=== PATIENT | female | born 1995 | race American Indian/Alaskan Native ===

== ENCOUNTER 2019-03-03 07:07 | Emergency (ER) | payer SELFPAY ==
[2019-03-03 07:24] VITALS: BP 134/60
--- NOTE | 2019-03-03 08:11 | Emergency Department Report ---
ED Abdominal Pain HPI - General Chief Complaint: Nausea/Vomiting/Diarrhea Stated Complaint: DIARRHEA,VOMITING Time Seen by Provider: 03/03/19 07:56 Source: patient Mode of arrival: Ambulatory Limitations: No Limitations - History of Present Illness Initial Comments: Malena is a 23 yo female with hx of obesity who presents with abdominal pain, nausea diarrhea for 2 months. Cramping sharp diffuse migrating pain intermittent. Sometimes, pain is localized to RUQ. She has had loose stools without constipation. No fever. No vomiting. +heartburn. Has gain 70 pounds since high school. 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 No PCP +daily marijuana use for several years In a same sex relationship. Does not have sex with men. No possibility of . MD Complaint: abdominal pain -: Gradual, month(s) (2) Location: diffuse, RUQ Radiation: back Migration to: RUQ, other (back) Severity: mild Severity scale (0 -10): 0 Quality: cramping Consistency: now resolved Improves With: nothing Worsens With: nothing Associated Symptoms: nausea, diarrhea, other (heartburn) - Related Data Previous Rx's Medication Instructions Recorded Last Taken Type Promethazine [Phenergan] 25 mg PO Q6HR PRN #10 tab 03/03/19 Unknown Rx Allergies Allergy/AdvReac Type Severity Reaction Status Date / Time shellfish derived Allergy Unknown Verified 03/03/19 07:18 ED Review of Systems ROS: Stated complaint: DIARRHEA,VOMITING Other details as noted in HPI Comment: All other systems reviewed and negative Constitutional: denies: fever, malaise Gastrointestinal: abdominal pain, nausea, diarrhea. denies: vomiting, constipation Genitourinary: denies: dysuria ED Past Medical Hx - Past Medical History Previous Medical History?: No - Surgical History Past Surgical History?: No - Social History Smoking Status: Current Every Day Smoker Substance Use Type: Alcohol, Marijuana - Medications Home Medications: Home Medications Medication Instructions Recorded Confirmed Last Taken Type Promethazine [Phenergan] 25 mg PO Q6HR PRN #10 tab 03/03/19 Unknown Rx ED Physical Exam - General Limitations: No Limitations General appearance: alert, in no apparent distress, other (appears well comfortable healthy articulate insightful talkative) - Head Head exam: Present: atraumatic, normocephalic - Eye Eye exam: Present: normal appearance - ENT ENT exam: Present: mucous membranes moist - Neck Neck exam: Present: normal inspection, full ROM - Respiratory Respiratory exam: Present: normal lung sounds bilaterally. Absent: respiratory distress, wheezes, rales, rhonchi - Cardiovascular Cardiovascular Exam: Present: regular rate, normal rhythm, normal heart sounds. Absent: systolic murmur, diastolic murmur, rubs, gallop - GI/Abdominal GI/Abdominal exam: Present: soft, normal bowel sounds. Absent: distended, tenderness, guarding, rebound - Extremities Exam Extremities exam: Present: normal inspection - Back Exam Back exam: Present: normal inspection - Neurological Exam Neurological exam: Present: alert, oriented X3 - Psychiatric Psychiatric exam: Present: normal affect, normal mood - Skin Skin exam: Present: warm, dry, intact, normal color. Absent: rash ED Course Vital Signs 03/03/19 03/03/19 03/03/19 07:20 07:30 07:44 Temperature 98.1 F 98.1 F Pulse Rate 90 90 Respiratory 18 18 18 Rate Blood Pressure 134/60 Blood Pressure 134/60 [Right] O2 Sat by Pulse 99 99 99 Oximetry ED Medical Decision Making - Medical Decision Making Miss Jeronimo is a very pleasant female with history of obesity and marijuana use who presents with 2 months of migraine abdominal pain. Differential diagnosis includes gallstones leading to biliary colic versus irritable bowel syndrome vs inflammatory bowel disease On my exam today I do not suspect appendicitis, cholecystitis, ectopic , bowel obstruction. I strongly recommended clear liquid diet for the next 2 days. I recommended magnesium citrate for a bowel cleanout. I also recommended improved diet quality. 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 SHe also understands that this type of food will exacerbate her symptoms. I also recommended detox from marijuana use for 2-3 weeks until her symptoms improved. Referred to [facility]. Prescribed promethazine for nausea. Critical care attestation.: If time is entered above; I have spent that time in minutes in the direct care of this critically ill patient, excluding procedure time. ED Disposition Clinical Impression: Abdominal pain Disposition: -01 TO HOME OR SELFCARE Is pt being admited?: No Does the pt Need Aspirin: No Condition: Stable Instructions: Irritable Bowel Syndrome (ED), Biliary Colic (ED) Prescriptions: Promethazine [Phenergan] 25 mg PO Q6HR PRN #10 tab PRN Reason: Nausea Forms: Work/School Release Form(ED)
== END 2019-03-03 08:27 | disposition home or self-care (01) ==
LOC: ED 07:07
DX: R10.9 Unspecified abdominal pain (principal); R19.7 Diarrhea, unspecified; R11.0 Nausea; F17.200 Nicotine dependence, unspecified, uncomplicated; F12.10 Cannabis abuse, uncomplicated
CPT/HCPCS: 99282